=== PATIENT | female | born 1980 | race Caucasian/White ===

== ENCOUNTER → 2016-06-27 | Outpatient (REF) | payer OTHER | LOC: M SFHCWAGY 13:28 | PROVIDERS: ATTEND Nurse Practitioner Family | DX: Z12.4 Encounter for screening for malignant neoplasm of cervix (principal) ==

== ENCOUNTER → 2018-11-07 | Outpatient (REF) | payer OTHER ==
[2018-11-07 13:02] LABS: HCG, SERUM QUANTITATIVE < 1.0 MIU/ML
[2018-11-07 13:05] LABS: LUTEINIZING HORMONE 5.7 mIU/mL; PROGESTERONE 0.52 NG/ML
[2018-11-07 13:06] LABS: ESTRADIOL 49.9 PG/ML
[2018-11-07 13:07] LABS: FOLLICLE STIMULATING HORMONE 9.7 mIU/mL
== END ==
LOC: M LABDRAW1 11:48
PROVIDERS: ATTEND Obstetrics & Gynecology Reproductive Endocrinology
DX: E28.9 Ovarian dysfunction, unspecified (principal)

== ENCOUNTER → 2018-11-12 | Outpatient (REF) | payer OTHER ==
[2018-11-12 12:32] LABS: ESTRADIOL 584.5 PG/ML; LUTEINIZING HORMONE 1.3 mIU/mL; PROGESTERONE 0.36 NG/ML
== END ==
LOC: M LABDRAW1 11:59
PROVIDERS: ATTEND Obstetrics & Gynecology Reproductive Endocrinology
DX: E28.9 Ovarian dysfunction, unspecified (principal)

== ENCOUNTER → 2018-11-20 | Outpatient (REF) | payer OTHER ==
[2018-11-20 10:06] LABS: THYROID STIMULATING HORMONE 2.44 uIU/ML (0.358-3.740)
[2018-11-20 10:35] LABS: PROGESTERONE 34.61 NG/ML
[2018-11-20 10:36] LABS: ESTRADIOL 384.4 PG/ML
== END ==
LOC: M LABDRAW1 08:11
PROVIDERS: ATTEND Obstetrics & Gynecology Reproductive Endocrinology
DX: E28.9 Ovarian dysfunction, unspecified (principal)

== ENCOUNTER → 2018-11-27 | Outpatient (REF) | payer OTHER ==
[2018-11-27 11:26] LABS: HCG, SERUM QUANTITATIVE < 1.0 MIU/ML
[2018-11-27 11:33] LABS: PROGESTERONE 7.58 NG/ML
== END ==
LOC: M LABDRAW1 08:40
PROVIDERS: ATTEND Obstetrics & Gynecology Reproductive Endocrinology
DX: Z32.00 Encounter for pregnancy test, result unknown (principal)

== ENCOUNTER → 2018-12-02 | Outpatient (REF) | payer OTHER ==
[2018-12-02 13:39] LABS: ESTRADIOL 99.4 PG/ML; FOLLICLE STIMULATING HORMONE 17.5 mIU/mL; HCG, SERUM QUANTITATIVE < 1.0 MIU/ML; LUTEINIZING HORMONE 6.1 mIU/mL; PROGESTERONE 0.23 NG/ML
== END ==
LOC: M LABDRAW1 12:35
PROVIDERS: ATTEND Obstetrics & Gynecology Reproductive Endocrinology
DX: E28.9 Ovarian dysfunction, unspecified (principal)

== ENCOUNTER → 2018-12-19 | Outpatient (REF) | payer OTHER ==
[2018-12-19 12:42] LABS: THYROID STIMULATING HORMONE 0.438 uIU/ML (0.358-3.740)
[2018-12-19 12:44] LABS: PROGESTERONE 26.17 NG/ML
[2018-12-19 12:45] LABS: ESTRADIOL 786.4 PG/ML
== END ==
LOC: M LABDRAW1 11:39
PROVIDERS: ATTEND Obstetrics & Gynecology Reproductive Endocrinology
DX: E28.9 Ovarian dysfunction, unspecified (principal)

== ENCOUNTER → 2018-12-26 | Outpatient (REF) | payer OTHER ==
[2018-12-26 12:38] LABS: PROGESTERONE 26.59 NG/ML
== END ==
LOC: M LABDRAW1 11:25
PROVIDERS: ATTEND Obstetrics & Gynecology Reproductive Endocrinology
DX: E28.9 Ovarian dysfunction, unspecified (principal)

== ENCOUNTER → 2018-12-29 | Outpatient (REF) | payer OTHER ==
[2018-12-29 13:00] LABS: THYROID STIMULATING HORMONE 1.69 uIU/ML (0.358-3.740)
[2018-12-29 13:01] LABS: PROGESTERONE 31.76 NG/ML
[2018-12-29 13:02] LABS: ESTRADIOL 959.1 PG/ML
== END ==
LOC: M LABDRAW1 08:33
PROVIDERS: ATTEND Obstetrics & Gynecology Reproductive Endocrinology
DX: Z32.01 Encounter for pregnancy test, result positive (principal)

== ENCOUNTER → 2019-01-05 | Outpatient (REF) | payer OTHER ==
[2019-01-05 12:45] LABS: PROGESTERONE 45.03 NG/ML; THYROID STIMULATING HORMONE 1.09 uIU/ML (0.358-3.740)
== END ==
LOC: M LABDRAW1 08:30
PROVIDERS: ATTEND Obstetrics & Gynecology Reproductive Endocrinology
DX: Z32.01 Encounter for pregnancy test, result positive (principal)

== ENCOUNTER → 2019-01-12 | Outpatient (REF) | payer OTHER ==
[2019-01-12 13:22] LABS: ESTRADIOL 1123.4 PG/ML; PROGESTERONE 39.73 NG/ML; THYROID STIMULATING HORMONE 0.888 uIU/ML (0.358-3.740)
== END ==
LOC: M LABDRAW1 09:05
PROVIDERS: ATTEND Obstetrics & Gynecology Reproductive Endocrinology
DX: Z32.01 Encounter for pregnancy test, result positive (principal)

== ENCOUNTER → 2019-01-22 | Outpatient (REF) | payer OTHER ==
[2019-01-22 13:08] LABS: ESTRADIOL 832.9 PG/ML; PROGESTERONE 26.06 NG/ML; THYROID STIMULATING HORMONE 1.16 uIU/ML (0.358-3.740)
== END ==
LOC: M LABDRAW1 09:08
PROVIDERS: ATTEND Obstetrics & Gynecology Reproductive Endocrinology
DX: E28.9 Ovarian dysfunction, unspecified (principal)

== ENCOUNTER → 2020-08-26 | Outpatient (REF) | payer OTHER | LOC: M SFHCWAGY 17:04 | PROVIDERS: ATTEND Nurse Practitioner Family | DX: Z12.4 Encounter for screening for malignant neoplasm of cervix (principal) | CPT/HCPCS: 87624; G0123 ==

== ENCOUNTER → 2021-08-31 | Outpatient (REF) | payer OTHER | LOC: M PLALAB 15:05 | PROVIDERS: ATTEND Advanced Practice Midwife | DX: Z12.4 Encounter for screening for malignant neoplasm of cervix (principal) ==

== ENCOUNTER → 2021-09-01 | Outpatient (REF) | payer OTHER | LOC: M SFHCWAGY 16:52 | PROVIDERS: ATTEND Advanced Practice Midwife | DX: Z12.4 Encounter for screening for malignant neoplasm of cervix (principal) | CPT/HCPCS: 87624; G0123 ==

== ENCOUNTER → 2022-09-24 | Outpatient (CLI) | payer OTHER | LOC: M WHC 07:26 | PROVIDERS: ATTEND Nurse Practitioner Family | DX: N83.201 Unspecified ovarian cyst, right side (principal); D25.9 Leiomyoma of uterus, unspecified ==

== ENCOUNTER → 2023-01-14 | Outpatient (REF) | payer OTHER | LOC: M SFHCWAGY 10:22 | PROVIDERS: ATTEND Advanced Practice Midwife | DX: Z12.4 Encounter for screening for malignant neoplasm of cervix (principal) | CPT/HCPCS: 87624; G0123 ==